=== PATIENT | female | born 1955 | race Caucasian/White ===

== ENCOUNTER → 2017-09-08 | Outpatient (CLI) | payer OTHER ==
[~2017-09-08] MED LIST: ACETAMINOPHEN325 M1 PO; ADULT LOW DOSE81 MG PO; ADVAIR 250-501 EACH; ADVAIR HFA 230M12 GM INH; ADVAIRDISKUS; ADVIL200 M1 PO; ASPIRIN325 PO; BENADRYL25 MG PO; BENTYL20 MG PO; CARAFATE 1 GM TA1 GM PO; CARVEDILOL25 MG PO; CELEXA 20 MG TA20 M1 PO; CELEXA40 MG OR; CLONAZEPAM 1 MG1 M1 PO; CLONAZEPAM PO; COLACE 100 MG100 MG PO; COMPAZINE10 M2 PO; COREG CR20 MG; COREG CR20 MG PO; COREG PO; COUMADIN 10MG T10 MG PO; CRESTOR10 MG PO; CYCLOBENZAPRINE10 MG PO; DESYREL300 MG PO; DIOVAN HCT 3201 EACH PO; FENOFIBRATE134 MG PO; FENTANYL PA12 MCG/HR TD; FENTANYL PA12 MCG/HR TP; FUROSEMIDE 20 M20 M1 PO; GLUCOPHAGE XR750 MG PO; HYDROCODON-ACE1 EAC7 PO; HYDROXYZINE HCL25 M2 PO; LEVOTHROID125 MCG PO; LEVSIN0.125 MG PO; LIDODERM 5%1 PATCH TOP; LISINOPRIL10 MG PO; LITHIUM CARBON450 MG; LOVENOX SC; MEDROLDOSEPACK PO; MINIPRIN81 MG PO; MOBIC15 MG PO; MOBIC7.5 MG PO; MS CONTIN15 MG PO; MULTI-VITAMIN1 EAC5 PO; MULTIGEN PO; NABUMETONE 750750 M1 PO; NEURONTIN 300300 M1 PO; NEXIUM40 MG PO; NORCO 5-325 TA1 EACH PO; OMACOR1 G1 PO; OMEPRAZOLE40 MG PO; ONDANSETRON HCL4 M2 PO; OXYCODON-ACETA1 EAC1; OXYCODON-ACETA1 EAC1 PO; OXYCODONE-APAP1 EAC6 PO; PARAFON FORTE500 M2 PO; PARAFON FORTE500 MG PO; PERCOCET 7.5-51 EACH PO; PERCOCET PO; PRAVACHOL40 MG PO; PROVENTIL HFA6.7 G1 INH; PROVENTIL17 G1 IH; REGLAN 10 MG TA10 MG; REGLAN 10 MG TA10 MG PO; RELAFEN750 MG PO; REMERON15 MG PO; ROBAXIN 750 MG750 M1 PO; SEROQUEL200 MG PO; SEROQUEL400 MG PO; SIMVASTATIN20 MG PO; SYNTHROID125 MCG PO; TRAMADOL 50 MG50 MG PO; ULTRA-LIGHT RO1 EACH MC; VIAGRA100 MG PO; VITAMIN D 5050000 I1 PO; WELLBUTRIN SR150 MG PO; ZETIA10 MG PO; [UNRECOGNIZED DRUG - OTHER] PO
== END ==
LOC: MRI 10:39
DX: S43.401A Unspecified sprain of right shoulder joint, initial encounter (principal); G89.29 Other chronic pain; M19.011 Primary osteoarthritis, right shoulder; X58.XXXA Exposure to other specified factors, initial encounter; Y93.89 Activity, other specified; Y92.89 Other specified places as the place of occurrence of the external cause; Y99.8 Other external cause status; M25.711 Osteophyte, right shoulder; M25.411 Effusion, right shoulder

== ENCOUNTER → 2018-03-22 | Outpatient (CLI) | payer OTHER | LOC: RAD 03-06 01:33 | DX: Z12.31 Encounter for screening mammogram for malignant neoplasm of breast (principal) ==

== ENCOUNTER 2019-01-22 13:54 | Emergency (ER) | payer OTHER ==
[~2019-01-22] VITALS: Ht 154.9 cm; Wt 65.3 kg
[2019-01-22] MEDS ORDERED: NORFLEX100 MG PO (15:37)
[2019-01-22 16:07] VITALS: BP 138/54
== END 2019-01-22 16:07 | disposition home or self-care (01) ==
LOC: ER 13:54
DX: S16.1XXA Strain of muscle, fascia and tendon at neck level, initial encounter (principal); S83.8X1A Sprain of other specified parts of right knee, initial encounter; S00.83XA Contusion of other part of head, initial encounter; I10 Essential (primary) hypertension; J45.909 Unspecified asthma, uncomplicated; E03.9 Hypothyroidism, unspecified; E78.5 Hyperlipidemia, unspecified; F32.9 Major depressive disorder, single episode, unspecified; M19.90 Unspecified osteoarthritis, unspecified site; Z86.711 Personal history of pulmonary embolism; Z88.2 Allergy status to sulfonamides; Z88.5 Allergy status to narcotic agent; Z91.041 Radiographic dye allergy status; Z88.1 Allergy status to other antibiotic agents; Z88.8 Allergy status to other drugs, medicaments and biological substances; W01.198A Fall on same level from slipping, tripping and stumbling with subsequent striking against other object, initial encounter; Y92.89 Other specified places as the place of occurrence of the external cause; Y93.89 Activity, other specified; Y99.8 Other external cause status

== ENCOUNTER → 2019-05-10 | Outpatient (CLI) | payer OTHER ==
[~2019-05-10] MED LIST changes: +NORFLEX100 MG PO
== END ==
LOC: RAD 05-04 10:16
DX: Z12.31 Encounter for screening mammogram for malignant neoplasm of breast (principal)

== ENCOUNTER 2019-09-19 06:16 | Inpatient (IN) | payer OTHER ==
[2019-09-12 11:34] LABS: HEMATOCRIT 38.9 % (37.0-47.0); MCH 30.1 pg (26.0-34.0); MCHC 33.3 g/dL (28.0-37.0); MCV 90.5 fL (80.0-100.0); RBC 4.3 mil/uL (4.20-5.00); RDW 13.5 % (10.5-14.5)
[2019-09-12 11:35] LABS: CALCIUM 9.5 mg/dL (8.5-10.1); CREATININE 1.1 mg/dL (0.6-1.0); POTASSIUM 3.8 mmol/L (3.5-5.1)
[2019-09-12 11:44] LABS: INR 1.2
[2019-09-12 11:49] LABS: URINE BILIRUBIN NEGATIVE (Negative); URINE BLOOD NEGATIVE (Negative); URINE CLARITY CLEAR; URINE COLOR YELLOW; URINE GLUCOSE-RANDOM* NEGATIVE (Negative); URINE KETONES NEGATIVE (Negative); URINE LEUKOCYTES-REFLEX NEGATIVE (Negative); URINE NITRITE-REFLEX NEGATIVE (Negative); URINE PROTEIN (DIPSTICK) NEGATIVE (Negative); URINE SPECIFIC GRAVITY <= 1.005 (1.005-1.035); URINE UROBILINOGEN 0.2 E.U./dl (0.2-1.0)
--- NOTE | 2019-09-12 15:46 | EKG ---
[facility] [place] [place] [address] ELECTROCARDIOGRAM REPORT Name: KASIA DUNNE Room #: PRE IN M.R.#: [id number] Admission: Attend Phys: Say Francis Discharge: Date of : 51 Report #: [id number] THIS REPORT FOR: cc: Prosper Diez MD, Eric K. MD Couchonnal, Luis F. MD ~ THIS REPORT FOR: //name// [facility] Test Date: 2019-09-12 Test Time: 10:57:35 Pat Name: KASIA DUNNE Department: Room: Gender: [employer] Electrical Designer: Chicho ZAVALA : 1955 Requested By: Say Augustine Order Number: [id number] MD: Brandon Espinoza Measurements Intervals [place] Rate: 68 P: 45 OR: 147 QRS: 11 QRSD: 83 T: 35 QT: 392 QTc: 417 Interpretive Statements Sinus rhythm Compared to ECG 05/15/2016 06:32:30 No significant changes Electronically Signed On 09-12-2019 15:45:56 CDT by Brandon Espinoza [email or web address] <ELECTRONICALLY SIGNED> By: Brandon Espinoza MD 09/12/19 1545 1057 1057 Brandon Espinoza MD /MIRI
[~2019-09-19] VITALS: Ht 154.9 cm; Wt 64.0 kg
--- NOTE | ~2019-09-19 | O ---
[facility] [place] [address] OPERATIVE REPORT Name: KASIA DUNNE Room #: 150-2 ADM IN M.R.#: [id number] Admission: 09/19/19 Attend Phys: Say Francis Discharge: Date of : 51 Report #: [id number] THIS REPORT FOR: cc: Prosper Diez MD, Eric K. MD VanDenBerghe,Say Chand MD ~ CC: Prosper Augustine DATE OF SERVICE: 09/19/2019 PREOPERATIVE DIAGNOSES: Right shoulder pain, posttraumatic osteoarthritis with rotator cuff tear and biceps tendinopathy. POSTOPERATIVE DIAGNOSES: Right shoulder pain, posttraumatic osteoarthritis with rotator cuff tear and biceps tendinopathy. PROCEDURE PERFORMED: Right reverse total shoulder arthroplasty with open biceps tenodesis. SURGEON: Say Augustine MD GROUND HAND: Jennifer Jorge PA-C. ANESTHESIA: General with preoperative ultrasound-guided interscalene block. FLUIDS: 800 mL of crystalloid. ESTIMATED BLOOD LOSS: Approximately 50 mL. IMPLANTS UTILIZED: DePuy Delta Xtend reverse shoulder arthroplasty with a size 10 Global Unite stem +1 epiphyseal body 38+2 eccentric glenosphere and a standard Metaglene. DESCRIPTION OF PROCEDURE: After proper identification of the patient and operative site in preoperative holding area, the operative site was signed by myself. Prophylactic antibiotics given. The patient elected to receive a block after reviewing the risks, benefits, alternatives and potential complications with anesthesia. After a satisfactory block, the patient was brought back to the operative suite after induction of satisfactory general anesthesia, the patient was carefully positioned in the beach chair with head of bed elevated approximately 40 degrees. Great care was taken to ensure neutral alignment of the head and neck. Right shoulder was sterilely prepped and draped in the usual manner and placed within a Tok3n spider limb positioning system. Anterior deltopectoral approach was planned. Final skin draping was with Ioban. Anterior approach to the shoulder was planned. Skin was incised sharply. Full [facility] [address] [place] [address] OPERATIVE REPORT Name: KASIA DUNNEN Room #: 150-2 ADM IN M.R.#: [id number] Admission: 09/19/19 Attend Phys: Say Francis Discharge: Date of : 51 Report #: [id number] thickness skin flaps were developed. Deltopectoral interval was identified and the subdeltoid space was carefully freed from its adhesions, biceps tendinopathy and partial thickness tearing was noted and a tenodesis was performed to the upper border of the pectoralis major with #2 FiberWire. Subscapularis was intact, and it was released and peel type manner off the lesser tuberosity for subsequent repair. There was some thinning of the mid portion of the subscapularis, but it did have upper border slips and a lower portion that were more amenable to a repair. The patient had a complete supraspinatus tear that extended back towards the infraspinatus and there was impaction and posterior rotation of the humeral head with complete loss of chondral surface and eburnation of the bone was noted on both sides of the joint. Oscillating saw was used to flatten the superior aspect of the humeral head. This was reamed by hand up to a size 10 stem, which matched the preoperative templating. Cutting guide was attached with the external rotation of the head noted causing some of the loss of metaphyseal support anteriorly. The humeral head was cut in approximately 10 degrees of retroversion. Cystic changes were noted in the lesser tuberosity, but otherwise appeared to be reasonable bone quality to support press fit fixation. A protection plate was applied. The subscapularis was carefully released circumferentially. The axillary nerve was identified and protected throughout the entire procedure. Anterior capsule was released off the subscap and the labrum was then released circumferentially around the joint. The inferior capsule had been carefully released from the glenoid medially to allow for appropriate visualization. The more posterior infraspinatus and teres minor were still intact and some mild posterior glenoid wear was noted. At this point, the Metaglene guide was positioned. Its trajectory was marked with the guide pin. This was then advanced. There appeared to be a good bone quality just with the guide pin placement. Next, the glenoid face was reamed correcting some of the mild posterior wear and the Arron reamer was then utilized and any excess bone or soft tissue was carefully removed. Step drill was utilized. This area was irrigated. The guide pin was removed. Central peg was contained and a standard Metaglene was impacted into position that had good fixation and rotational stability. Next, superior and inferior locking screws were drilled and positioned 30 mm inferiorly, 24 mm superiorly with anterior and posterior screws approximately 18 mm in length that were nonlockers. These were sequentially tightened. Locking screws were then tightened and then a 38+2 eccentric glenosphere was positioned over a guidewire. The central locking screw was rotated counterclockwise, still a click was noted and the glenosphere was felt to be fully seated. This was then easily tightened by hand. The central guide pin was removed. This was then impacted and tightened three additional times until it was felt to be fully seated. The eccentricity was inferior. At this point, humeral stem was assembled. Trial was placed and a +3 and +6 polyethylene liners were trialed. Next, the implant was assembled on the back table. Two drill holes were placed in the anterior cortex of the humerus where #2 FiberWire was passed and the implant was then carefully impacted into position in approximately 10 degrees retroversion. There was good rotational stability and fit and cement was not felt to be needed. Trial polys were again [facility] [address] [address] OPERATIVE REPORT Name: UZAIRKASIA YANGN Room #: 150-2 ADM IN M.R.#: [id number] Admission: 09/19/19 Attend Phys: Say Francis Discharge: Date of : 51 Report #: [id number] utilized and the +6 appeared to provide the best overall stability and soft tissue tension. Shoulder was stable in multiple planes with no propensity to dislocate. Next, the joint was thoroughly irrigated with antibiotic irrigant which had been performed multiple times throughout the procedure. Subscapularis was repaired with the two #2 FiberWires in a modified Elfego-Wilfredo technique. One gram vancomycin powder was utilized, half at deep, half at more superficial. Deltopectoral interval was closed with 0 Vicryl, 2-0 Vicryl for the subcutaneous tissues, final skin closure with a running Monocryl. Dermabond was applied as well as sterile dressing and a sling and abduction pillow. Qualified rn first assist utilized throughout the entire procedure to aid in patient limb positioning, visualization and retraction of soft tissues, instrument passage, closure and sling and dressing application. By: [phone] Say Augustine MD /richard
[~2019-09-19 06:16] MED LIST changes: +ADVAIR 250-501 EACH INH; +AFRIN15 M1 NASAL; +APPLE CIDER VI600 MG PO; +BENTYL 10 MG CA10 MG PO; +CALCIUM CITRAT1 EAC7 PO; +FAMOTIDINE 20 M20 MG PO; +GAS RELIEF125 M1 PO; +GREEN TEA1 EACH PO; +KRILL OIL 1,001 EAC1 PO; +MULTIGEN CAPLET1 CAP PO; -NEURONTIN 300300 M1 PO; +NEURONTIN 300M300 M2 PO; +PEPTO-BISMOL262 M1 PO; +PROAIR HFA8.5 GM INH; +PROBIOTIC1 EAC7 PO; +REFRESH OPTIVE15 ML OPHTHALMIC; -REMERON15 MG PO; +REMERON30 MG PO; +STOOL SOFTENER100 MG PO; +SUPER B COMPLE1 EAC2 PO; +TIROSINT88 MCG PO; +TOBRADEX EYE O3.5 GM OPHTHALMIC; +TYLENOL EXTRA500 MG PO; -VITAMIN D 5050000 I1 PO; +VITAMIN D21250 MC1 PO; +WOMEN'S DAILY1 EAC2 PO
[2019-09-19 06:40] VITALS: BP 153/95
[2019-09-19 15:36] VITALS: BP 118/68
[2019-09-19] MEDS ORDERED: WELLBUTRIN XL150 MG PO (17:41)
[2019-09-19 19:03] VITALS: BP 128/59
--- NOTE | 2019-09-19 19:49 | NUR ---
PATIENT ARRIVED FROM OR REPORT WAS GIVEN TO THIS NURSE FROM OR NURSE. PT CAME TO UNIT ROOM 442 WITH SPOUSE AT BEDSIDE. HAS SHOULDER BRACE INTACT ABLE TO WIGGLE FINGERS. V.S. 98.6 16 73 118/68 O2 SAT = 100%RA. FLUIDS STARTED ORDERED. PT HAS AQUACELL DRESSING INTACT AND HAS POLAR PACK. HAS SCD'S NATHANIEL. HAS REGULAR DIET ATE IN POST OP AND DINNER HERE ON UNIT. PT STATES NO PAIN. PLEASANAT AND COOPERATIVE WITH CARE.
--- NOTE | 2019-09-19 21:23 | NUR ---
ADMISSION ASSESSMENT COMPLETED. PT IS PLEASANT AND COOPERATIVE. DENIES ANY GI OR SYMPTOMS.POLAR FIDEL TO R SHOULDER. VSS. IVF INFUSING. LOOKING FORWARD TO GOING HOME [place].
[2019-09-20 04:20] VITALS: BP 132/83
[2019-09-20 06:20] LABS: BASOPHILS 0.3 % (0.0-2.0); EOSINOPHILS 0.4 % (0.0-3.0); HEMATOCRIT 29.8 % (37.0-47.0); HEMOGLOBIN 10.1 gm/dL (12.0-15.0); LYMPHOCYTES 20.4 % (24.0-44.0); MCH 30.6 pg (26.0-34.0); MCHC 33.9 g/dL (28.0-37.0); MCV 90.3 fL (80.0-100.0); PLATELET COUNT 248 thou/uL (150-400); POLYS 66.9 % (36.0-66.0); RDW 13.1 % (10.5-14.5); WBC 7.4 thou/uL (4.0-11.0)
[2019-09-20 06:52] LABS: CALCIUM 8.6 mg/dL (8.5-10.1); MAGNESIUM 1.7 mg/dL (1.8-2.4); POTASSIUM 4.1 mmol/L (3.5-5.1)
[2019-09-20 07:45] LABS: TSH 0.295 uIU/mL (0.358-3.740)
[2019-09-20 08:39] LABS: FOLIC ACID 35.7 ng/mL (8.6-58.9)
[2019-09-20 15:25] VITALS: BP 166/82
[2019-09-20 15:52] VITALS: BP 166/82
[2019-09-20 18:46] VITALS: BP 166/82
[2019-09-20 19:45] VITALS: BP 166/82
--- NOTE | 2019-09-20 19:57 | NUR ---
DISCHARGE PAPERS GONE OVER WITH PATIENT AND SPOUSE SIGNED AND COPY IN CHART. IV ACSESS DCD . EDUCATION ON SLING. PAIN MEDS. ALL BELONGINGS PACKED AND TAKEN WITH PATIENT. PT TAKEN VIA W/C TO MAIN ENTRANCE SPOUSE WITH PATIENT. PT W/O PAIN OR RESP DISTRESS AT DISCHARGE.
== END 2019-09-20 20:07 | disposition home or self-care (01) | DRG 483 ==
LOC: 4S 06:16 → TBA 06:16 → PRE 09:50 → 4S 14:46
PROVIDERS: Nurse Practitioner; Physician Assistant Surgical; ADMIT Orthopaedic Surgery Sports Medicine; ATTEND Orthopaedic Surgery Sports Medicine
PROC: 0RRJ00Z Replacement of Right Shoulder Joint with Reverse Ball and Socket Synthetic Substitute, Open Approach (ICD-10-PCS; principal; 2019-09-19)
DX: M19.111 Post-traumatic osteoarthritis, right shoulder (principal); M75.101 Unspecified rotator cuff tear or rupture of right shoulder, not specified as traumatic; M75.21 Bicipital tendinitis, right shoulder; E78.5 Hyperlipidemia, unspecified; J45.909 Unspecified asthma, uncomplicated; F41.9 Anxiety disorder, unspecified; F32.9 Major depressive disorder, single episode, unspecified; Z96.652 Presence of left artificial knee joint; N18.9 Chronic kidney disease, unspecified; I12.9 Hypertensive chronic kidney disease with stage 1 through stage 4 chronic kidney disease, or unspecified chronic kidney disease; Z20.828 Contact with and (suspected) exposure to other viral communicable diseases; E03.9 Hypothyroidism, unspecified; Z86.711 Personal history of pulmonary embolism; Z88.2 Allergy status to sulfonamides; Z88.8 Allergy status to other drugs, medicaments and biological substances; Z88.1 Allergy status to other antibiotic agents; Z91.041 Radiographic dye allergy status; Z87.891 Personal history of nicotine dependence; Z79.82 Long term (current) use of aspirin; Z79.899 Other long term (current) drug therapy
CPT/HCPCS: 10102; 50010; 50101; 50172; 50386; 50417; 50697; 50733; 50935; 51320; 52001; 52138; 52256; 53000; 53078; 54118; 56524; 56525; 56526; 56530; 57095; 57103; 62110; 62900; 64039; 70005

== ENCOUNTER 2020-01-10 06:18 | Day surgery (SDC) | payer OTHER ==
[~2020-01-10] VITALS: Ht 154.9 cm; Wt 65.3 kg
[~2020-01-10 06:18] MED LIST changes: +WELLBUTRIN XL150 MG PO
[2020-01-10 07:15] VITALS: BP 167/66
--- NOTE | 2020-01-14 06:21 | O ---
[facility] [place] [place] [address] [address] OPERATIVE REPORT Name: KASIA DUNNE Room #: DEP [facility]..#: [id number] Admission: 01/10/20 Attend Phys: Antwon Nava MD Discharge: 01/10/20 Date of : 51 Report #: [id number] THIS REPORT FOR: cc: Prosper Diez MD,Prosper Nava,Antwon Murdock MD ~ CC: Prosper Nava DATE OF SERVICE: 01/10/2020 SURGEON: Antwon Nava MD MANAGER ENTERPRISE CONTENT MANAGEMENT: None. PREOPERATIVE DIAGNOSIS: Bilateral upper lid dermatochalasia with superior visual field defect. POSTOPERATIVE DIAGNOSIS: Bilateral upper lid dermatochalasia with superior visual field defect. OPERATION PERFORMED: Bilateral upper lid functional blepharoplasty. ANESTHESIA: Local with IV sedation. COMPLICATIONS: None. INDICATIONS FOR SURGERY: This patient has acquired upper lid dermatochalasia with superior visual field loss both eyes because of excessive upper lid tissues to include skin and fat. Visual field testing demonstrates dense superior visual defects. Retesting with the upper lid elevated shows an improvement in visual field loss of over 30% and in excess of 12 degrees. The current procedures are undertaken in order to improve the patient's visual function. Informed consent was obtained to include but not limited to the loss of vision, bleeding, infection, scarring, failure to improve the problem and need for further surgery. DESCRIPTION OF OPERATION: The patient was taken to the operating room, where 2% Xylocaine with epinephrine mixed with equal parts of 0.75% Marcaine with Wydase was administered transcutaneously to each upper lid. The patient was then prepped and draped in the usual sterile fashion and a skin-marking pen was then utilized to outline an upper lid crease that was symmetrical on each side. Graefe forceps were then used to quantitate the redundant upper lid skin and it [address] [address] OPERATIVE REPORT Name: KASIA DUNNE Room #: DEP [facility].#: [id number] Admission: 01/10/20 Attend Phys: Antwon Nava MD Discharge: 01/10/20 Date of : 51 Report #: [id number] was similarly outlined. The incisions were then made with Anirudh scissors and a skin-muscle flap removed from each side with high-temp cautery. Hemostasis was achieved with the monopolar cautery as it was throughout the case. The orbital septum was then identified and the central and medial fat pads were inspected. The redundant soft tissue was then sculpted with the monopolar cautery. The upper lid crease was then reformed with tightening of the pretarsal orbicularis muscle. The upper lid crease was then further reformed with multiple interrupted 6-0 chromic sutures. The skin was then closed with a running 6-0 plain gut suture. The wound was then cleaned and dressed with ophthalmic antibiotic ointment and a nonstick dressing. The patient was transported to the recovery area, where cold compresses were applied, having tolerated the procedure well with no anesthetic or operative complications being noted. <ELECTRONICALLY SIGNED> By: Antwon Nava MD 01/14/2021 0 Antwon Nava MD /nt
== END 2020-01-10 09:20 | disposition home or self-care (01) ==
LOC: TBA 06:18 → OR 06:18
PROVIDERS: ATTEND Ophthalmology
DX: H02.834 Dermatochalasis of left upper eyelid (principal); H02.831 Dermatochalasis of right upper eyelid; H53.462 Homonymous bilateral field defects, left side; H53.461 Homonymous bilateral field defects, right side; I10 Essential (primary) hypertension; E11.9 Type 2 diabetes mellitus without complications; E78.5 Hyperlipidemia, unspecified; E03.9 Hypothyroidism, unspecified; J45.909 Unspecified asthma, uncomplicated; F31.9 Bipolar disorder, unspecified; F41.9 Anxiety disorder, unspecified; K21.9 Gastro-esophageal reflux disease without esophagitis; Z98.890 Other specified postprocedural states; Z79.899 Other long term (current) drug therapy; Z87.891 Personal history of nicotine dependence; Z79.01 Long term (current) use of anticoagulants; Z96.652 Presence of left artificial knee joint; Z86.711 Personal history of pulmonary embolism; Z96.611 Presence of right artificial shoulder joint
CPT/HCPCS: 50010; 50101; 50386; 50398; 51636; 56531; 62110; 62850; 70005

== ENCOUNTER → 2020-06-10 | Outpatient (CLI) | payer OTHER | LOC: BC 10:03 | PROVIDERS: ATTEND Internal Medicine | DX: Z12.31 Encounter for screening mammogram for malignant neoplasm of breast (principal) ==